=== PATIENT | male | born 1960 | race Caucasian/White ===

== ENCOUNTER 2019-11-21 20:21 | Inpatient (IN) | payer OTHER ==
[~2019-11-21] VITALS: Ht 167.6 cm; Wt 61.2 kg
[2019-11-21 20:28] VITALS: BP 143/75
[2019-11-21] MEDS ORDERED: TRESIBA FL100 UNIT/1 SUBQ (21:15)
[2019-11-21] MEDS ORDERED: HYDROCHLOROTHIA25 M2 PO (21:16)
[2019-11-21] MEDS ORDERED: NOVOLOG FL100 UNIT/M SUBQ (21:16)
[2019-11-21] MEDS ORDERED: TOPROL XL100 MG PO (21:16)
[2019-11-21] MEDS ORDERED: OXYCODONE HCL 55 MG PO (21:17)
[2019-11-21] MEDS ORDERED: GABAPENTIN600 M1 PO (21:17)
[2019-11-21 21:18] LABS: ABSOLUTE NEUTROPHILS 9.7 thou/uL (1.4-8.2); BASOPHILS 0.3 % (0.0-2.0); EOSINOPHILS 1.3 % (0.0-3.0); HEMATOCRIT 49.9 % (42.0-52.0); HEMOGLOBIN 17.3 gm/dL (14.0-18.0); LYMPHOCYTES 17.6 % (24.0-44.0); MCH 31.7 pg (26.0-34.0); MCHC 34.8 g/dL (28.0-37.0); MCV 91.3 fL (80.0-100.0); MONOCYTES 7.7 % (1.0-8.0); PLATELET COUNT 302 thou/uL (150-400); POLYS 73.1 % (36.0-66.0); RBC 5.46 mil/uL (4.50-6.00); RDW 13.4 % (10.5-14.5); WBC 13.2 thou/uL (4.0-11.0)
[2019-11-21] MEDS ORDERED: ZENPEP DR 25,01 EAC1 PO (21:18)
[2019-11-21] MEDS ORDERED: ONDANSETRON HCL4 M2 PO (21:19)
[2019-11-21] MEDS ORDERED: JEVITY 1.2 CAL237 ML PER TUBE (21:19)
[2019-11-21 21:21] LABS: URINE BILIRUBIN NEGATIVE (Negative); URINE BLOOD NEGATIVE (Negative); URINE CLARITY CLEAR; URINE COLOR YELLOW; URINE GLUCOSE-RANDOM* NEGATIVE (Negative); URINE KETONES NEGATIVE (Negative); URINE LEUKOCYTES-REFLEX NEGATIVE (Negative); URINE NITRITE-REFLEX NEGATIVE (Negative); URINE PROTEIN (DIPSTICK) NEGATIVE (Negative); URINE UROBILINOGEN 0.2 E.U./dl (0.2-1.0)
[2019-11-21 21:25] LABS: CALCIUM 10.2 mg/dL (8.5-10.1); CREATININE 1.1 mg/dL (0.7-1.3); POTASSIUM 3.6 mmol/L (3.5-5.1)
[2019-11-21 21:31] LABS: DIRECT BILIRUBIN 0.1 mg/dL (<0.1-0.2); TOTAL BILIRUBIN 0.6 mg/dL (<0.1-1.0); TOTAL PROTEIN 8.3 g/dL (6.4-8.2)
[2019-11-21 23:28] VITALS: BP 125/76
[2019-11-21 23:45] VITALS: BP 141/81
--- NOTE | 2019-11-22 01:42 | NUR ---
PT ADMITTED FROM THE ED AT 0005 WITH COMPLAIN OF ABD PAIN,NAUSEA AND PT STATES HE BELIEVES HE HAS DKA.PT IS A/O X4.PT IS UP AD ESTUARDO AND USES URINAL.PT HAS A PEG TUBE IN PLACE AND ALSO ON CLEAR LIQUID DIET.PT HAS A HISTORY OF CHRONIC PANCREATITIS,INSULIN DEPENDENT DIABETES,AND HTN.PT IV ON RT AC WITH NS AT 125CC/HR.PT IS ACCUCHECK ACHS AND SSI.PT IS ON ROOM AIR.PT HAD CT SCAN DONE.LBM 11/21/2019.PT COMPLAIN OF NAUSEA AND WAS GIVEN ZOFRAN.WILL CONTINUE TO MONITOR PER PROTOCOL
[2019-11-22 03:46] VITALS: BP 134/78
[2019-11-22 05:24] LABS: HEMATOCRIT 45.3 % (42.0-52.0); HEMOGLOBIN 15.7 gm/dL (14.0-18.0); MCH 31.7 pg (26.0-34.0); MCHC 34.6 g/dL (28.0-37.0); MCV 91.8 fL (80.0-100.0); RBC 4.94 mil/uL (4.50-6.00); RDW 13.4 % (10.5-14.5); WBC 10.2 thou/uL (4.0-11.0)
[2019-11-22 05:29] LABS: CALCIUM 8.8 mg/dL (8.5-10.1); CREATININE 1.1 mg/dL (0.7-1.3); MAGNESIUM 1.7 mg/dL (1.8-2.4); POTASSIUM 3.6 mmol/L (3.5-5.1)
[2019-11-22 07:35] VITALS: BP 132/66
[2019-11-22 14:27] VITALS: BP 131/78
--- NOTE | 2019-11-22 17:56 | NUR ---
Assumed pt care at 7am.Pt in bed sleeping on and off.Assessment completed.vss. Dr Ruiz rounded on pt early this am.Order noted.Medicated pt with morphine and zofran as needed with relief.Pt has adequate u/o. updated about pt status.Will continue to monitor.
[2019-11-22 20:10] VITALS: BP 135/81
--- NOTE | 2019-11-23 01:47 | NUR ---
PT CARE ASSUMED WITH PT INBED WATCHING TV AT 1900.PT IS A/O X4.PT IS UP AD ESTUARDO BUT EDUCATED TO CALL IF NEEDS ASSISTANCE .PT C/O PAINAND NAUSEA AND MORPHINE GIVEN FOR PAIN MANAGEMENT AND ZOFRAN FOR NAUSEA.IV FLUID CHANGED FROM NS 0.9 TO D5 0.45 NS AT 75CC/HR.PT IS NPO AND TO START CLEAR LIQUID DURING BREAKFAST.PT IS ACCUCHECKS ACHS.WILL CONTINUE TO MONITOR
[2019-11-23 04:06] VITALS: BP 124/78
[2019-11-23 05:38] LABS: GLYCOHEMOGLOBIN (HGB A1C) 9.1 % (4.8-5.6)
[2019-11-23 07:23] VITALS: BP 125/89
[2019-11-23 07:36] LABS: ABSOLUTE NEUTROPHILS 4.4 thou/uL (1.4-8.2); BASOPHILS 0.8 % (0.0-2.0); EOSINOPHILS 2.4 % (0.0-3.0); HEMATOCRIT 44.4 % (42.0-52.0); HEMOGLOBIN 15.4 gm/dL (14.0-18.0); LYMPHOCYTES 25.2 % (24.0-44.0); MCH 31.8 pg (26.0-34.0); MCHC 34.6 g/dL (28.0-37.0); MCV 91.8 fL (80.0-100.0); MONOCYTES 8.7 % (1.0-8.0); PLATELET COUNT 200 thou/uL (150-400); POLYS 62.9 % (36.0-66.0); RBC 4.84 mil/uL (4.50-6.00); RDW 13.4 % (10.5-14.5)
[2019-11-23 07:55] LABS: CALCIUM 8.7 mg/dL (8.5-10.1); CREATININE 0.9 mg/dL (0.7-1.3); MAGNESIUM 1.8 mg/dL (1.8-2.4); PHOSPHORUS 2.7 mg/dL (2.5-4.9); POTASSIUM 3.6 mmol/L (3.5-5.1)
--- NOTE | 2019-11-23 15:37 | NUR ---
PT A&OX4, VSS, PAIN IN ABDOMEN. PAIN MEDICATION GIVEN. IV PATENT WITH FLUIDS RUNNING. NEW IV PLACED IN LEFT AC. PATIENT REMAINS NPO. BLOOD SUGAR STABLE. DENIES N/V. NO SIGNS OF DISTRESS. WILL CONTINUE TO MONITOR.
[2019-11-23 15:42] VITALS: BP 123/77
--- NOTE | 2019-11-23 16:07 | HC ---
[facility] [place] [address] CONSULTATION Name: TITO MENA Room #: 454-P ADM IN M.R.#: [id number] Admission: 11/21/19 Attend Phys: George Jaramillo MD Discharge: Date of : 62 Report #: [id number] THIS REPORT FOR: cc: Mahesh Jorgensen MD, David R. MD McElhinney, Christian C. MD ~ CC: Mahesh Taylor MD DATE OF SERVICE: 11/22/2019 HISTORY OF PRESENT ILLNESS: The patient is a 59-year-old male with a history of insulin-dependent diabetes and chronic pancreatitis. He was admitted for recurrent nausea, vomiting, abdominal pain, dehydration. The patient has a history of chronic pancreatitis, suspected from chronic alcohol abuse over the years. He quit drinking alcohol approximately 5 years ago. Apparently, he has been followed by KALEN Seth and he has undergone several biliary and pancreatic procedures including pancreatic stent placement x 3, last one being a year ago for chronic pancreatitis and pain. He also had significant weight loss apparently down to 100 pounds he states last year and therefore a PEG-J tube was placed approximately 6 months ago. He states he was hospitalized for diabetic ketoacidosis, similar symptoms at [facility] and the tube was plugged and replaced at that time. He then traveled to [place] recently and was rehospitalized for similar symptoms apparently with diabetic ketoacidosis at that time. He has a long history of insulin-dependent diabetes. He is followed by an conduit worker apparently, recently he was changed from insulin syringes to a pen and has changed the dose, but I do not have the specifics on this. After the PEG-J tube placement, the patient was able to gain approximately 30 pounds. He states he is using the tube typically at home for the primary source of nutrition, although he does eat dinner at times, small meals. It has helped somewhat with his chronic abdominal pain as well. Since admission, he is on IV fluids and clear liquids. He does report some midepigastric abdominal pain at this time. His nausea and vomiting has improved. He underwent a CT scan of the abdomen and pelvis yesterday, which shows gallbladder being normal. Prominent pneumobilia was noted in the left hepatic lobe. The pancreas showed extensive widespread calcifications consistent with chronic pancreatitis, areas of ductal dilation measuring up to 5 mm were noted. No focal masses or peripancreatic inflammation was detected. Percutaneous PEG tube with J-extension was noted with the bulb in the gastric lumen. The distal portion of the tube was directed towards the fundus and then distally with the tip in the gastric antrum. Small bowel is normal. Colon also normal. History of sigmoidectomy was also noted. Ultrasound of the abdomen was performed today that showed mild biliary ductal dilation 9 mm. No evidence of gallbladder inflammation or obstruction, chronic pancreatitis. The patient did have a mildly elevated white count on admission [address] [address] CONSULTATION Name: TRINATITO Room #: 454-P [facility] IN M.R.#: [id number] Admission: 11/21/19 Attend Phys: George Jaramillo MD Discharge: Date of : 62 Report #: [id number] yesterday at 13.2, today is 10.2. His lipase was 35 yesterday. His liver function test remained normal. Most recent glucose was at noon today at 132, earlier this morning is 219. PAST MEDICAL HISTORY: Chronic pancreatitis, previous history of alcohol abuse, previous history apparently of ERCP with sphincterotomy and previous pancreatic stent placement, PEG tube with J-extension placed approximately 6 months ago for nutritional support, chronic abdominal pain, insulin-dependent diabetes, history of diabetic ketoacidosis previous history of diverticulitis, partial sigmoid resection apparently for diverticulitis, hypertension, previous tonsillectomy. REVIEW OF SYSTEMS: As per HPI. SOCIAL HISTORY: Previous history of alcohol abuse. No alcohol in the last 5 years. He does continue to smoke at this time. FAMILY HISTORY: Negative for colon cancer. ALLERGIES: AMOXICILLIN AND PENICILLIN. MEDICATIONS: On admission, insulin, Toprol, hydrochlorothiazide, oxycodone IR 5 mg, Zenpep 25,000 units, Zofran p.r.n., gabapentin, Jevity 1.2 Guillermo. PHYSICAL EXAMINATION: VITAL SIGNS: Temperature is 98.2, pulse 83, blood pressure 131/78, respiratory rate is 18. GENERAL: He is alert and oriented x 3, in no acute distress. HEENT: Sclerae nonicteric. Oropharynx clear. NECK: Supple, without lymphadenopathy. CARDIOVASCULAR: Regular rate and rhythm. CHEST: Clear to auscultation bilaterally. ABDOMEN: Soft. He is mildly tender to palpation, thin, a PEG-J tube was noted to be in position. EXTREMITIES: No cyanosis, clubbing or edema. LABORATORY DATA: Sodium 142, potassium 3.6, chloride 103, bicarbonate 30, BUN 25, creatinine 1.1, most recent glucose 132, AST 21, lipase 35, total bilirubin 0.6, calcium 8.8, magnesium 1.7, alkaline phosphatase 92, ALT 22, total protein 8.3, albumin 4.0. WBC 10.2, hemoglobin 15.7, platelet count is 227. ASSESSMENT AND PLAN: Chronic pancreatitis. The patient with a long history has multiple calcifications consistent with chronic pancreatitis on recent CT scan. No new changes. Apparently, biliary or pancreatic ductal dilation, although there is some ductal dilation in the pancreas, which would be consistent with chronic pancreatitis. He has had several apparently ERCPs with pancreatic stent placements in the past by Dr. Taylor as well as sphincterotomy, which likely [facility] [address] [place] [address] CONSULTATION Name: TITO MENA Room #: 454-P [facility] IN M.R.#: [id number] Admission: 11/21/19 Attend Phys: George Jaramillo MD Discharge: Date of : 62 Report #: [id number] explains pneumobilia on CT scan. His liver function tests are normal at this time. Lipase is also normal. The patient has already been on long-term enzyme replacement therapy. He also has a PEG-J tube in place for nutritional support was also helpful apparently for chronic abdominal pain from pancreatitis. It appears the distal portion of the J-tube, however, is in the gastric antrum. He may benefit from having this advanced into the duodenum below the pancreas. We will have to have IR do this in the near future. In the meantime, he is feeling better, would continue IV fluids and supportive care, monitoring glucose closely, which is being done. Clear liquids at this time. We will likely restart tube feedings in the near future when the tube can be repositioned. We will need to obtain old records from Dr. Taylor. Thank you for allowing me to participate in his care. <ELECTRONICALLY SIGNED> By: Samir Yates MD 11/23/19 1607 1610 0030 Samir aYtes MD /nt
[2019-11-23 20:15] VITALS: BP 137/84
--- NOTE | 2019-11-24 02:50 | NUR ---
ASSUMED CARE OF PT AT 1900HRS. PT IS AOX4 AND LET NEEDS BE KNOWN. PT REPORTED PAIN AND NAUSEA AND WAS TREATED WITH PRN MEDS AROUND THE CLOCK. FEEDING TUBE DRESSING CHAGED. PT WAS ASKED TO REFRAIN FROM DRINKING AFTER MN IN ANTICIPAITON OF A PROCEDURE. PT WAS ABLE TO GET COMFORTABLEW ANF SLEEPP PART OF THE SHIFT. VSS AND NO S/S OF ACUTE DISTRESS. WILL CONTINUE TO MONITOR FOR CHANGES.
[2019-11-24 04:52] VITALS: BP 125/79
[2019-11-24 06:02] LABS: ALBUMIN 3.2 g/dL (3.4-5.0); DIRECT BILIRUBIN 0.2 mg/dL (<0.1-0.2); MAGNESIUM 1.5 mg/dL (1.8-2.4); PHOSPHORUS 3.2 mg/dL (2.5-4.9); TOTAL PROTEIN 6.9 g/dL (6.4-8.2)
[2019-11-24 06:04] LABS: CHOLESTEROL 102 mg/dL (<200); HDL CHOLESTEROL 27 mg/dL (>40); LDL CHOLESTEROL 47 mg/dL (<100); TC:HDL 3.8 Ratio (Not establshd); TRIGLYCERIDE 142 mg/dL (<150); VLDL 28 mg/dL (<40)
[2019-11-24 06:09] LABS: SERUM ASSESSMENT Clear
[2019-11-24 07:40] VITALS: BP 129/87
--- NOTE | 2019-11-24 11:10 | NUR ---
ASSUMED CARE AT 0700. PT ALERT AND ORIENTED. C/O PAIN AT THIS TIME. VSSA/RA. NOT EATING OR DRINKING AT THIS TIME, WAITING FOR PEG TUBE TO BE REPOSITIONED. BLOOD SUGARS MONITORED. PIV INFUSING WITHOUT PROBLEMS. WILL GIVE PRN PAIN MEDS ORDERED. WILL CONTINUE TO MONITOR.
--- NOTE | 2019-11-24 13:39 | NUR ---
PT ADMITTED RELATED TO ABD PAIN. CM REVIEWED CHART AND SPOKE WITH CARE TEAM. CM CALLED AND SPOKE WITH PT THIS DAY. PT IS A&O X4. CM ROLE INTRODUCED. PT INDICATED HE LIVES IN A HOUSE WITH HIS WITH 2 STEPS TO ENTER AND NO STEPS INSIDE. 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 PT INDICATED HE HAD USED Cymbet IN THE PAST AND THAT HE IS ESTABLISHED WITH A [employer] FOR HIS ENTERAL TUBE FEEDING SUPPLIES AND HAD NO ISSUE WITH THAT. PT THINKS [employer] MAY BE LINC[facility]. PT INDICATED HE HOPES TO BE ABLE TO RETURN HOME ONCE HIS PEG-J TUBE IS REPOSITIONED BY IR. CM TO FOLLOW SHOULD ANY DC NEEDS ARISE.
[2019-11-24 14:46] VITALS: BP 156/90
[2019-11-24] MEDS ORDERED: HYDROCODON-ACE1 EAC5 PO (16:54)
[2019-11-24] MEDS ORDERED: KLOR-CON 1010 MEQ PO (16:55)
[2019-11-24] MEDS ORDERED: MAGNESIUM OXID240 MG PO (16:55)
[2019-11-24 17:22] VITALS: BP 156/90
--- NOTE | 2019-11-26 10:53 | HC ---
[facility] [place] [address] CONSULTATION Name: TITO MENA Room #: 454-P [facility] IN M.R.#: [id number] Admission: 11/21/19 Attend Phys: Caro Ruiz MD Discharge: 11/24/19 Date of : 62 Report #: [id number] THIS REPORT FOR: cc: Gary Jorgensen MD, David R. MD Al-Mubaslat, Ahmad MD ~ CC: GARY Ruiz DATE OF SERVICE: 11/24/2019 ENDOCRINE CONSULTATION NOTE CONSULTING PHYSICIAN: Dr. Ruiz. REASON FOR CONSULTATION: Uncontrolled type 2 diabetes mellitus. HISTORY OF PRESENT ILLNESS: This is a 59-year-old male patient whose medical background is remarkable for chronic pancreatitis, as a result of which he developed diabetes mellitus as well as significant feeding difficulties, eventually necessitating the placement of a PEG tube several months ago. The patient describes a dramatic weight loss and the wake of severe pain associated with p.o. intake where he had lost weight down to 100 pounds body weight, following the placement of PEG tube and the initiation of tube feeds, he regained 30 pounds. He has been using a system of 6 cans of tube feeds to go overnight and then would eat 3 small meals during the daytime. The patient's diabetes history started following the advancement of his chronic pancreatitis and pancreatic insufficiency and is currently maintained on a regimen of Tresiba insulin 50 units q.a.m. in addition to NovoLog insulin 10 units t.i.d. a.c. The patient describes a consistent issues with severe fasting hyperglycemia in excess of 300 mg/dL and describes a real effort all day long to accomplish control over these, where by the end of the day, these would fall down to the low 100 mg/dL range. He does have frequent issues with hypoglycemia falling into the 60s and 70s at least twice a day with which he experiences severe hypoglycemic symptoms. The patient is not aware of issues pertaining to diabetic retinopathy, nephropathy, or neuropathy. He has not had issues with coronary artery disease in the past. The patient presented to the Emergency Department of [facility] with complaints of right lower quadrant abdominal pain, generalized ill feeling, abdominal pain, nausea and vomiting associated with hyperglycemia. It was found that his PEG tube was slightly misplaced and he is undergoing a revision of his [facility] [address] [place] [address] CONSULTATION Name: TITO MENA Room #: 454-P [facility] IN M.R.#: [id number] Admission: 11/21/19 Attend Phys: Caro Ruiz MD Discharge: 11/24/19 Date of : 62 Report #: [id number] PEG tube later today. REVIEW OF SYSTEMS: CONSTITUTIONAL: Fatigue, tiredness. Chronic issues with weight loss and inconsistent p.o. intake as noted in HPI. No fever or chills. HEENT: Negative for sore throat, sinus pain, ear drainage. PULMONARY: Negative for shortness of breath, cough or hemoptysis. CARDIAC: Negative for chest pain, palpitations, syncope or presyncope. GASTROINTESTINAL: Abdominal pain, bouts of nausea, vomiting, alteration in bowel movement frequency. As noted in HPI, the patient has background history of alcoholic chronic pancreatitis. NEUROLOGY: Negative for loss of consciousness, seizure activity or severe frequent headaches. PSYCHIATRIC: Negative for hallucinations, delusions, or other major abnormalities. Otherwise, review of systems noncontributory other than what is mentioned in HPI. PAST MEDICAL HISTORY: 1. Chronic alcoholic pancreatitis. 2. Type 2 diabetes mellitus. 3. Chronic nutritional deficiencies, and tube feeding dependence. 4. Diverticulitis. 5. Hypertension. PAST SURGICAL HISTORY: Bowel resection and tonsillectomy. ALLERGIES: AMOXICILLIN AND PENICILLIN. OUTPATIENT MEDICATIONS: Include Tresiba insulin 50 units q.a.m., NovoLog insulin 10 units t.i.d. a.c., Toprol-XL 100 mg daily, hydrochlorothiazide 25 mg daily, oxycodone IR 5 mg q. 4 hours p.r.n., Zenpep 25,000 unit capsules 3 capsules with each meal, Zofran 4 mg q. 8 hours p.r.n., gabapentin 300 mg t.i.d. FAMILY HISTORY: Noncontributory. SOCIAL HISTORY: The patient is and has 2 daughters. 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 He is a former alcoholic, but has not had any alcohol in more than 5 years. He smokes 1-1/2 packs per day. PHYSICAL EXAMINATION: GENERAL: male patient who appears relatively comfortable, not in apparent distress, sitting upright. VITAL SIGNS: Blood pressure is 129/87 mmHg, heart rate is 80 beats per minute, respiration 18 per minute, temperature 36.7 degrees Celsius. CONSTITUTIONAL: The patient is sitting upright in bed, appears relatively comfortable, not in apparent distress. [facility] [address] [place] [address] CONSULTATION Name: TITO MENA Room #: 454-P DIS IN M.R.#: [id number] Admission: 11/21/19 Attend Phys: Caro Ruiz MD Discharge: 11/24/19 Date of : 62 Report #: [id number] HEENT: Anicteric sclerae. Intact extraocular motions. NECK: Supple, without JVD, carotid bruits or lymphadenopathy. I do not appreciate thyromegaly. CHEST: Noted for moderate air entry bilaterally with scattered rales. No wheeze or crackles. HEART: Regular rate and rhythm without murmurs or gallops. ABDOMEN: Soft, lax. No guarding, but there is discomfort on deep palpation in a generalized fashion. Sluggish bowel sounds. EXTREMITIES: Lower extremity exam is negative for ankle edema, skin breaks, or ulcerations. Pedal pulses are appreciated. NEUROLOGIC: Awake, alert and oriented to time, place and person. The remainder of his examination is nonfocal. PSYCH: Interactive. Normal thought process. Normal mood and affect. LABORATORY RESULTS: Glucose 134, phosphorus 3.2, magnesium 1.5, total bilirubin 1.0, direct bilirubin 0.2, AST 16, ALT 14, alkaline phosphatase 74, total protein 6.9, albumin 3.2. HDL cholesterol is 27, LDL 47. Total cholesterol 102, triglycerides 142. Glucose went as low as 74 as high as 190. ASSESSMENT AND PLAN: 1. Type 2 diabetes mellitus. As noted above, the patient had developed diabetes mellitus in the setting of chronic alcoholic pancreatitis. This is likely due to pancreatic insufficiency and insulin deficiency. That said, the patient certainly needs a regimen that is based on a basal bolus strategy. Having discussed the details of his glycemic pattern, it appears that the patient's feeding strategy is a cooper challenge in the sense that he would get a significant nutritional load overnight and wake up to deal with severe hyperglycemia almost on a daily basis. I believe that he has been compensating for this with excessive basal insulin intake, and has on occasion developed hypoglycemia, which seems to have been more frequent lately. We discussed different strategies to approach this issue and I propose that he would transition from his current nutritional system towards one, where he would distribute the #6 tube feed cans across his 3 meals where he could cover these with a higher dose of NovoLog at about 14 units t.i.d. a.c, but at the same token drop his Tresiba insulin to 38 units q.a.m. I explained that this would be the framework of the strategy to adopt once he leaves here, but that he will need to monitor his blood glucose closely to assess the efficacy of this regimen and the need to adjust it further. 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 2. Chronic pancreatitis. The patient has had ongoing issues with chronic alcoholic pancreatitis for several years, which has resulted in enzymatic and hormonal insufficiencies. The patient was advised to maintain his intake of pancreatic enzymes. 3. Hypertension. The patient's level of blood pressure control is adequate. He is to continue with the current regimen. [address] [address] CONSULTATION Name: TRINATITO Room #: 454-P [facility] IN M.R.#: [id number] Admission: 11/21/19 Attend Phys: Caro Ruiz MD Discharge: 11/24/19 Date of : 62 Report #: [id number] I appreciate this consultation by Dr. Ruiz. <ELECTRONICALLY SIGNED> By: Carisa Hetah MD 11/26/19 1053 [id number] 1528 Carisa Heath MD /nt
== END 2019-11-24 17:37 | disposition home or self-care (01) | DRG 394 ==
LOC: ER 20:21 → EROBS 23:15 → 4W 23:15
PROVIDERS: Emergency Medicine; Nurse Practitioner Family; ADMIT Internal Medicine
PROC: 0D2DXUZ Change Feeding Device in Lower Intestinal Tract, External Approach (ICD-10-PCS; principal; 2019-11-24)
DX: K94.13 Enterostomy malfunction (principal); E46 Unspecified protein-calorie malnutrition; K86.0 Alcohol-induced chronic pancreatitis; E11.65 Type 2 diabetes mellitus with hyperglycemia; R10.9 Unspecified abdominal pain; R11.2 Nausea with vomiting, unspecified; E87.6 Hypokalemia; E86.0 Dehydration; F10.20 Alcohol dependence, uncomplicated; F17.210 Nicotine dependence, cigarettes, uncomplicated; I10 Essential (primary) hypertension; Y83.8 Other surgical procedures as the cause of abnormal reaction of the patient, or of later complication, without mention of misadventure at the time of the procedure; Y83.3 Surgical operation with formation of external stoma as the cause of abnormal reaction of the patient, or of later complication, without mention of misadventure at the time of the procedure; Y92.89 Other specified places as the place of occurrence of the external cause; Z90.49 Acquired absence of other specified parts of digestive tract; Z79.4 Long term (current) use of insulin; Z79.899 Other long term (current) drug therapy; Z88.1 Allergy status to other antibiotic agents; Z88.0 Allergy status to penicillin; Z68.21 Body mass index [BMI] 21.0-21.9, adult
CPT/HCPCS: 10040